=== PATIENT | male | born 1955 | race Caucasian/White ===

== ENCOUNTER 2019-05-02 11:12 | Emergency (ER) | payer MEDICARE ==
[2019-05-02 11:34] VITALS: BP 137/78
--- NOTE | 2019-05-02 11:44 | UC ---
Skin Complaint HPI - HPI Summary HPI Summary: 63-year-old male presents with complaints of rash to his right groin. States he first noticed it last evening and the redness had increased by this morning. Mildly tender. No known tick bites however patient states he is frequently outdoors and has removed multiple ticks over the past few weeks. States he was treated for Lyme disease approximately 4 years ago. Denies fever, chills, flulike illness, headache, myalgias, joint pain or swelling. - History of Current Complaint Chief Complaint: UCRash Time Seen by Provider: 05/02/19 11:36 Stated Complaint: RASH Hx Obtained From: Patient Pain Intensity: 1 - Allergy/Home Medications Allergies/Adverse Reactions: Allergies Allergy/AdvReac Type Severity Reaction Status Date / Time cat dander Allergy Unknown Verified 05/02/19 11:33 Reaction Details Home Medications: Home Medications Omeprazole 1 tab PO ONCE PRN 05/02/19 [History Confirmed 05/02/19] PMH/Surg Hx/FS Hx/Imm Hx GI/ History: Gastroesophageal Reflux Psychological History: Anxiety, Bipolar Disorder - Surgical History Surgical History: Yes Surgery Procedure, Year, and Place: thyroid cyst removed at age 17, T & A age 8. esophogeal surgery 2019 - Family History Known Family History: Positive: Non-Contributory - Social History Occupation: Employed Full-time Lives: Alone Alcohol Use: Daily Substance Use Type: None Smoking Status (MU): Former Smoker When Did the Patient Quit Smoking/Using Tobacco: 10 YEARS AGO Review of Systems All Other Systems Reviewed And Are Negative: Yes Constitutional: Negative: Fever, Chills Skin: Positive: Rash Respiratory: Positive: Negative Cardiovascular: Positive: Negative Gastrointestinal: Positive: Negative Genitourinary: Positive: Negative Musculoskeletal: Negative: Arthralgia, Myalgia Neurological: Negative: Headache Is Patient Immunocompromised?: No Physical Exam - Summary Physical Exam Summary: GENERAL APPEARANCE: Well developed, well nourished, alert and cooperative, and appears to be in no acute distress. CARDIAC: Normal S1 and S2. No S3, S4 or murmurs. Rhythm is regular. There is no peripheral edema, cyanosis or pallor. Extremities are warm and well perfused. Capillary refill is less than 2 seconds. Peripheral pulses intact. LUNGS: Clear to auscultation without rales, rhonchi, wheezing or diminished breath sounds. ABDOMEN: Positive bowel sounds. Soft, nondistended, nontender. No guarding or rebound. No masses or hepatosplenomegally. MUSKULOSKELETAL: ROM intact to all extremities. No joint erythema or tenderness. Normal muscular development. Normal gait. SKIN: 13 cm x 6.5 cm area of erythema and increased warmth without pallor, induration, or fluctuance noted to the right groin. Triage Information Reviewed: Yes Vital Signs: Initial Vital Signs Temp 98.6 F 05/02/19 11:23 Pulse 50 05/02/19 11:23 Resp 18 05/02/19 11:23 BP 137/78 05/02/19 11:23 Pulse Ox 99 05/02/19 11:23 Vital Signs Reviewed: Yes Course/Dx - Course Course Of Treatment: 63-year-old male presents with complaints of rash to his right groin. States he first noticed it last evening and the redness had increased by this morning. Mildly tender. No known tick bites however patient states he is frequently outdoors and has removed multiple ticks over the past few weeks. States he was treated for Lyme disease approximately 4 years ago. Denies fever, chills, flulike illness, headache, myalgias, joint pain or swelling. Afebrile. Vital signs stable. Patient had a 13 cm x 6.5 cm area of erythema and increased warmth without pallor, induration, or fluctuance noted to the right groin. I suspect that this is a cellulitis however I cannot exclude the possibility of erythema migrans considering his multiple exposures to tick bites. Discussed this with the patient and will treat him with doxycycline 100 mg twice a day 2 weeks to cover for the possibility of Lyme disease. He is to follow-up with his primary care provider in 2 weeks for recheck of his symptoms or sooner if symptoms do not improve. Anticipatory guidance and warning symptoms were reviewed with the patient. Verbalizes understanding and agrees with plan of care. - Differential Diagnoses - Skin Complaint Differential Diagnoses: Cellulitis, Local Allergic Reaction, Tick Born Illness - Diagnoses Provider Diagnosis: Cellulitis Discharge - Sign-Out/Discharge Documenting (check all that apply): Patient Departure All imaging exams completed and their final reports reviewed: No Studies - Discharge Plan Condition: Stable Disposition: HOME Prescriptions: Doxycycline Hyclate 100 mg PO BID #28 tablet Patient Education Materials: Lyme Disease (ED), Cellulitis (ED) Referrals: Cachorro TAO,Ian Larose [Primary Care Provider] - Additional Instructions: I suspect that the area of redness to your right groin is an infection of the skin called cellulitis however I cannot fully rule out the possibility of Lyme disease especially with your high-risk history of potential tick bite. I will place you on an antibiotic to treat for the infection that will also cover you for the possibility of Lyme disease. Take doxycycline 100 mg twice a day for 2 weeks. There is no benefit of blood testing for Lyme disease at the time of the tick bite because even people who become infected will not have a positive blood test until approximately two to six weeks after the tick bite. To try to avoid getting bitten by a tick, you can: * Wear shoes, long-sleeved shirts, and long pants when you go outside. Keep ticks away from your skin by tucking your pants into your socks. * Wear light colors so you can spot any ticks that get on your clothes. * Wear bug spray or cream that contains DEET. (Do not use DEET on babies younger than 2 months.) On your clothes and gear, you can use bug repellents that have a chemical called "permethrin." * Shower within 2 hours of being outdoors if you think you have been in an area where there are ticks. * Put dry clothes briefly (for about 4 minutes) in a dryer after being outdoors. * Check your clothes and body for ticks after being outdoors. Be sure to check your scalp, waist, armpits, groin, and backs of your knees. Check your children , too. Follow up with your primary care provider in 2 weeks for recheck of symptoms. Sooner if no improvement. Seek immediate medical attention if you develop a fever, severe headache, stiff neck, or any worsening of symptoms. - Billing Disposition and Condition Condition: STABLE Disposition: Home
== END 2019-05-02 12:10 | disposition home or self-care (01) ==
LOC: UCEAST 11:12
DX: L03.314 Cellulitis of groin (principal); K21.9 Gastro-esophageal reflux disease without esophagitis; F41.9 Anxiety disorder, unspecified; F31.9 Bipolar disorder, unspecified
CPT/HCPCS: 99212; G0463